=== PATIENT | male | born 1980 | race Caucasian/White ===

== ENCOUNTER 2020-03-03 12:14 | Emergency (ER) | payer MEDICAID ==
[~2020-03-03] VITALS: Ht 177.8 cm; Wt 104.3 kg
[2020-03-03] MEDS ORDERED: BACTRIM DS TAB1 EACH PO (15:14)
[2020-03-03] MEDS ORDERED: KEFLEX500 MG PO (15:14)
== END 2020-03-03 15:45 | disposition home or self-care (01) ==
LOC: ED 12:14
PROC: 0H9DXZZ Drainage of Right Lower Arm Skin, External Approach (ICD-10-PCS; principal; 2020-03-03)
DX: L02.413 Cutaneous abscess of right upper limb (principal); L03.113 Cellulitis of right upper limb; F17.200 Nicotine dependence, unspecified, uncomplicated
CPT/HCPCS: 10060; 73090; 80053; 85025; 99283-25; J0696; J1885